=== PATIENT | female | born 1945 ===

== ENCOUNTER → 2022-06-13 08:00 | Outpatient (CLI) | payer OTHER ==
[~2022-06-13] VITALS: Ht 152.4 cm; Wt 63.5 kg
[~2022-06-13 08:00] MED LIST: ALENDRONATE SOD70 MG; CEFADROXIL500 MG PO; ELIQUIS2.5 MG PO; LOSARTAN POTASS25 MG PO; METFORMIN HCL500 M4; PERCOCET 5-3251 EACH PO; SIMVASTATIN5 MG
== END | disposition home or self-care (01) ==
LOC: LAB 08:00 → SURG 06-16 10:15 → EDSTATUS 06-16 11:30
PROVIDERS: ATTEND Orthopaedic Surgery
DX: M17.12 Unilateral primary osteoarthritis, left knee (principal)

== ENCOUNTER 2022-06-15 18:55 | Inpatient (IN) | payer OTHER ==
[~2022-06-15] VITALS: Ht 152.4 cm; Wt 65.8 kg
[2022-06-15] MEDS ORDERED: LOSARTAN POTASS25 MG PO (20:22)
--- NOTE | 2022-06-15 20:23 | NUR ---
SE RECIBE PTE ALERTA Y ORIENTADA X3 QUIEN REFIERE DOLOR EN [place] I[place]QU[place] DESDE LAS 11 AM. SE MONITOREAN S/V Y SE UBICA EN FT.
--- NOTE | 2022-06-15 20:47 | NUR ---
SE LLAMA A PTE EN VARIAS OCACIONES PARA BIB DE MUESTRAS Y EJECUTAR ORDENES. PTE NO SE ENCUENTRA EN OSERBACION AL MOMENTO DE EJECUTAR ORDENES.
--- NOTE | 2022-06-15 21:24 | NUR ---
PTE EVALUADO POR MD [facility] [place] [facility]. SE EDUCA A PTE SOBRE EL MISMO Y REFIERE ENTENDER. SE EJECUTAN ORDENES BAJO MEDIDAS ACEPTICAS. PTE PEND A RESULTADOS DE LAB.
--- NOTE | 2022-06-15 23:31 | NUR ---
RN LINH BIB LAS MUESTRAS DE LABS MIA ORDEN MEDICA Y BAJO MEDIDAS ASEPTICAS.
[2022-06-17] MEDS ORDERED: SIMVASTATIN5 MG (08:08)
[2022-06-17] MEDS ORDERED: METFORMIN HCL500 M4 (08:08)
[2022-06-17] MEDS ORDERED: ALENDRONATE SOD70 MG (08:08)
[2022-06-19] MEDS ORDERED: ELIQUIS2.5 MG PO (08:13)
[2022-06-19] MEDS ORDERED: PERCOCET 5-3251 EACH PO (08:13)
[2022-06-19] MEDS ORDERED: CEFADROXIL500 MG PO (08:13)
== END 2022-06-19 10:16 | DRG 470 ==
LOC: ER 18:55 → SURG 06-16 02:01
PROVIDERS: ADMIT Orthopaedic Surgery; ATTEND Orthopaedic Surgery
PROC: 0SRD0J9 Replacement of Left Knee Joint with Synthetic Substitute, Cemented, Open Approach (ICD-10-PCS; principal; 2022-06-16 11:00)
DX: M17.12 Unilateral primary osteoarthritis, left knee (principal); D62 Acute posthemorrhagic anemia; M22.12 Recurrent subluxation of patella, left knee; I10 Essential (primary) hypertension; Z96.652 Presence of left artificial knee joint; Z20.822 Contact with and (suspected) exposure to COVID-19